=== PATIENT | female | born 1990 | race Caucasian/White ===

== ENCOUNTER 2025-08-11 05:53 | Day surgery (SDC) | payer BC ==
[2025-08-06 08:21] VITALS: BMI 27.3
[2025-08-11] MEDS ORDERED: Bupivacaine/Epinephrine 0.25% 30 ML VIAL ONE (06:59)
[2025-08-11] MEDS ORDERED: CEFAZOLIN 2 GM VIAL ONE (06:59)
[2025-08-11] MEDS ORDERED: PROPOFOL 20 ML ONE (07:06)
[2025-08-11] MEDS ORDERED: Rocuronium Bromide 10 MG/ML (10ML VIAL) ONE (07:27)
[2025-08-11] MEDS ORDERED: Ketorolac Tromethamine 30 MG (1 mL) VIAL ONE (07:56)
[2025-08-11] MEDS ORDERED: SUGAMMADEX SODIUM 200 MG/2 ML VIAL ONE (08:00)
== END 2025-08-11 09:45 | disposition home or self-care (01) ==
LOC: CSHSDC 05:53
PROVIDERS: ATTEND Surgery
PROC: 0WQF0ZZ Repair Abdominal Wall, Open Approach (ICD-10-PCS; principal; 2025-08-11)
DX: K43.9 Ventral hernia without obstruction or gangrene (principal); I10 Essential (primary) hypertension; Z90.49 Acquired absence of other specified parts of digestive tract
CPT/HCPCS: A6258; J1885; J2250; J2704; J3010